=== PATIENT | male | born 1980 | race Caucasian/White ===

== ENCOUNTER 2024-11-02 12:34 | Inpatient (IN) ==
[2024-11-02] MEDS: SODIUM CHLORIDE 1,000 ML IV ONE (13:31)
[2024-11-02] MEDS: TORADOL IVP STA (13:31)
--- NOTE | 2024-11-02 13:38 | DI ---
EXAM: FRONTAL CHEST RADIOGRAPH(S). 1 VIEW. History: Chest pain. Shortness of breath. Comparison: 09/08/2021 Findings: Heart size normal. No pleural effusion or pneumothorax. No focal airspace opacification.Jesse triculoperitoneal shunt. Impression: No acute findings
[2024-11-02 13:44] LABS: BASOPHILS % (AUTO) 0.6 % (0.0-3.0); EOSINOPHILS % (AUTO) 0.3 % (0.0-7.0); HEMATOCRIT 46.7 % (42.0-52.0); HEMOGLOBIN 16.1 g/dl (14.0-18.0); IMMATURE GRANULOCYTE % (AUTO) 0.3 % (0.0-5.0); LYMPHOCYTES # (AUTO) 1.2 K/uL (0.60-3.4); LYMPHOCYTES % (AUTO) 18.5 (10.0-50.0); MEAN CORPUSCULAR HEMOGLOBIN 27.9 pg (27.0-31.0); MEAN CORPUSCULAR HGB CONC 34.5 (31.8-35.4); MEAN CORPUSCULAR VOLUME 80.9 fl (80.0-94.0); MONOCYTES # (AUTO) 0.7 K/uL (0.4-2.0); MONOCYTES % (AUTO) 11.7 (0-10); NEUTROPHILS # (AUTO) 4.3 K/ul (2.0-6.9); NEUTROPHILS % (AUTO) 68.6 % (42.2-75.2); PLATELET COUNT 220 10^3/uL (140-440); RDW COEFFICIENT OF VARIATION 12.7 % (11.6-14.8); RED BLOOD COUNT 5.77 10^6/ul (4.70-6.10); WHITE BLOOD COUNT 6.31 K/ul (4.2-10.2)
[2024-11-02 13:49] LABS: ALANINE AMINOTRANSFERASE 91.5 U/L (0-50); ALBUMIN 4.83 g/dL (3.5-5.0); ALKALINE PHOSPHATASE 42.9 U/L (38-126); ASPARTATE AMINO TRANSFERASE 235.8 U/L (17-59); BILIRUBIN,TOTAL 3.86 mg/dL (0.2-1.3); BLOOD UREA NITROGEN 16.5 mg/dL (9-20); CALCIUM 8.71 mg/dL (8.4-10.2); CARBON DIOXIDE 23.6 mmol/L (22-30.0); CHLORIDE 94.3 mmol/L (98-107); CREATININE 1.88 mg/dL (0.60-1.10); GLUCOSE 88.2 mg/dL (74-106); POTASSIUM 3.76 mmol/L (3.5-5.1); SODIUM 127.6 mmol/L (134.5-145); TOTAL PROTEIN 8.07 g/dL (6.3-8.2)
[2024-11-02 13:51] LABS: RSV MOLECULAR NEGATIVE BY NAAT (NEGATIVE); SARS COV-2 RNA RAPID NAAT NEGATIVE (NEGATIVE)
[2024-11-02 13:52] LABS: MOLECULAR FLU A POSITIVE BY NAAT (NEGATIVE); MOLECULAR FLU B NEGATIVE BY NAAT (NEGATIVE)
[2024-11-02 14:01] LABS: TROPONIN I < 0.012 ng/ml (0.0000-0.120)
[2024-11-02 14:08] LABS: PARTIAL THROMBOPLASTIN TIME 31.4 SEC (23.9-40.0); PROTHROMBIN TIME 12.7 SEC (9.3-11.0)
[2024-11-02 14:14] LABS: CREATINE KINASE 11551.7 U/L (55-170)
--- NOTE | 2024-11-02 15:25 | US ---
EXAM: ULTRASOUND OF THE RIGHT UPPER QUADRANT (LIMITED ABDOMEN) HISTORY: Sepsis. Elevated liver function tests. Elevated bilirubin. TECHNIQUE: Sonography of the right upper quadrant of the abdomen was performed. Color Doppler imagin g and spectral Doppler imaging of the portal vein was also performed. Images were obtained and store d in a permanent archive. COMPARISON: None. FINDINGS: Pancreas: Not visualized due to overlying bowel gas. Liver: Enlarged and diffusely increased echogenicity. Normal surface contour. No focal hepatic lesio n. Main portal vein: Normal hepatopetal flow. Gallbladder: No gallstones in the gallbladder. No gallbladder wall thickening. Negative sonographic M urphy's sign. Common bile duct measures 4.0 mm. Right Kidney: Measures: 11.2 x 4.6 x 5.0 cm. No mass. No calculus. No hydronephrosis. IVC: Patent on color doppler. No abnormality on limited abdalla scale image. Other: No ascites. IMPRESSION: 1. Hepatomegaly. 2. Fatty metamorphosis of the liver. 3. Pancreas not visualized. 4. Otherwise unremarkable right upper quadrant abdomen ultrasound.
[2024-11-02 15:27] LABS: BILIRUBIN,URINE Negative (NEGATIVE); CLARITY,URINE Clear (CLEAR); COLOR,URINE Amber (YELLOW); GLUCOSE, URINE (UA) Negative (NEGATIVE); KETONES,URINE Negative (NEGATIVE); LEUKOCYTE ESTERASE ,URINE Negative (NEGATIVE); NITRITE,URINE Negative (NEGATIVE); PH,URINE 5.5 (5-9); PROTEIN,URINE 3+ (NEGATIVE); URINE, BLOOD 3+ (NEGATIVE); UROBILINOGEN,URINE 0.2 (0.2)
[2024-11-02 15:33] LABS: AMORPHOUS SEDIMENT,UR 2+ (NOT PRESENT); SQUAMOUS EPITHELIAL CELL,UR 0-2 (0-5)
[2024-11-02 15:34] LABS: MUCUS,URINE TRACE (NOT PRESENT)
--- NOTE | 2024-11-02 17:36 | ED.PDOC ---
General ED Provider: Dr. VAL SHANKS DO Chief Complaint: Fall Stated Complaint: 44-year-old male presents to the ER with his sister who states that the patient had fallen and was not able to get up from the floor. The patient has a history of recurrent falls presumably due to his known history of brain cancer. This diagnosis has been present for greater than 10 years. He has a [employer] shunt. He has started to establish care here locally as his care was otherwise in [place] and other [facility]. There is reported fever. He denies headache, neck pain, distal paresthesia or weakness. Denies chest pain or shortness of breath. Denies abdominal pain, diarrhea, constipation, melena, medic easier, dysuria or hematuria. No known sick contacts. History reviewed in chart otherwise Time Seen by Provider: 11/02/24 12:40 Information Source: Patient Primary Care Provider: LEXI OSBORNE Nursing and Triage Documentation Reviewed and Agree: Yes What is Opioid Naive?: *Opioid Naive implies the patient is not already taking opioids or not chronically receiving opioids on a daily basis. *PRN dosing is not "usually" associated with tolerance. *Patients are at higher risk of over-sedation and aspiration. What is Opioid Tolerant?: *Opioid Tolerance implies less than the expected response to an opioid. *Acquired tolerance is defined by the patient taking 60mg of oral morphine daily (or equianalgesic dose of another opioid) for 1 week or more. *Often associated with chronic pain. *May take more than usual dose to achieve desired pain control. Review of Systems Review Of Systems Constitutional: Reports No symptoms All Other Systems: Reviewed and Negative [facility] Medical History (Updated 11/02/24 @ 18:03 by VAL SHANKS DO) History of seizure Z87.898 - Personal history of other specified conditions (ICD-10) Physical Exam Physical Exam Appearance: Reports Ill-appearing, No pain distress and Well-nourished Ill-appearing: Moderate Eyes: Reports WANDA, EOMI and Conjunctiva clear ENT: Reports Oropharynx normal Respiratory: Reports Airway patent, Breath sounds clear, Breath sounds equal and Respirations nonlabored Cardiovascular: Reports Pulses normal and Tachycardia GI/: Reports Soft and Nontender Musculoskeletal: Reports Normal strength and ROM intact Skin: Reports Warm, Dry and Normal color Neurological: Reports Sensation intact, Motor intact, Cranial nerves intact, Alert and Oriented Psychiatric: Reports Affect appropriate and Mood appropriate Interpretation Radiology Interpretation Radiology Interpretation By: Radiologist Radiology Results: No acute changes Exam Interpreted: Portable CXR Radiology Interpretation By: Radiologist Radiology Results: No acute changes Exam Interpreted: Other (Gallbladder ultrasound) Re-Evaluation Re-Evaluation Additional Comments: 44-year-old male presents to the ER febrile and ill- appearing. Concern for sepsis and septic workup immediately initiated. This also included viral swabs. These were subsequently positive for influenza A. It is noted that he had a transaminitis which could be caused from the flu. Gallbladder ultrasound subsequently negative. CLIFF present in addition to significant level of creatinine kinase to suggest rhabdomyolysis which aligns with his clinical history of lying on the floor for an unknown amount of time. He denies headache and presents with baseline mentation. Doubt acute complication of his brain cancer or [employer] shunt. No obvious disruption of the shunt on his chest x-ray. I do not feel a shunt series otherwise is necessary given the lack of symptoms and presenting physical exam. 30 cc/kg fluid bolus given although he does not have a leukocytosis, and his blood pressure is normotensive, this will be integral for his CLIFF and rhabdomyolysis. Exam and workup otherwise not consistent with pneumonia, hepatic, biliary, pancreatic, appendiceal, vascular or obstructive process. Patient treated with antipyretics in the emergency department which improved his fever. Tamiflu also ordered. The patient is not on any immunosuppressive medications. I discussed the case with the hospitalist service preliminarily as the patient has a complicated history with the presence of a [employer] shunt and history of brain cancer but I do not feel these are contributing factors to his presenting symptoms today nor is there acute complications regarding these pathologies. If we are able to demonstrate improvement in his rhabdo and renal function, the hospitalist service has indicated they may be able to admit for treatment here. The patient also has a history of adrenal insufficiency but does not demonstrate any signs or symptoms of that here today in my clinical opinion. Will reassess his laboratory workup after fluid bolus for disposition 1758: Patient is remained stable. Vital signs stable. Labs have improved except for the CK which may have just not peaked yet. His bilirubin has improved as well as his transaminase level and creatinine. I have discussed the case further with the hospitalist service who has graciously accepted for inpatient treatment for rhabdomyolysis, influenza, CLIFF and severe sepsis. Tissue perfusion reassessment conducted with no adverse interval change. Stable for admission Critical Care Note Critical Care Note Total Critical Care Time (mins): 180 Comments: Critically ill patient with rhabdomyolysis, severe sepsis, acute kidney injury that has required constant cardiac monitoring, frequent reassessments, prompt recognition and management and measurement of cardiac output measures as well as fluid bolus and supportive care. Course Course 11/02/24 13:29 11/02/24 17:31 Orders, Labs, Meds: Lab Review 11/02/24 11/02/24 11/02/24 13:22 13:29 15:10 WBC 6.31 RBC 5.77 Hgb 16.1 Hct 46.7 MCV 80.9 MCH 27.9 MCHC 34.5 RDW Coeff of Brooke 12.7 Plt Count 220 Immature Gran % (Auto) 0.3 Neut % (Auto) 68.6 Lymph % (Auto) 18.5 Dyer % (Auto) 11.7 H Eos % (Auto) 0.3 Baso % (Auto) 0.6 Neut # (Auto) 4.3 Lymph # (Auto) 1.2 Dyer # (Auto) 0.7 Eos # (Auto) 0.0 Baso # (Auto) 0.0 Immature Gran # (Auto) 0.0 PT 12.7 H INR 1.23 APTT 31.4 Sodium 127.6 L Potassium 3.76 Chloride 94.3 L Carbon Dioxide 23.6 Anion Gap 13.46 BUN 16.5 Creatinine 1.88 H Estimated GFR (MDRD) 39.00 BUN/Creatinine Ratio 8.77 Glucose 88.2 Lactic Acid 1.01 Calcium 8.71 Total Bilirubin 3.86 H AST 235.8 H ALT 91.5 H Alkaline Phosphatase 42.9 Total Creatine Kinase 62218.7 H CK-MB (CK-2) 30.800 H* CK-MB (CK-2) % 0.2600 Troponin I < 0.012 NT-Pro-B Natriuret Pep 225 Total Protein 8.07 Albumin 4.83 Globulin 3.24 Albumin/Globulin Ratio 1.49 Urine Color Arpita Urine Clarity Clear Urine pH 5.5 Ur Specific [place] >=1.030 Urine Protein 3+ H Urine Glucose (UA) Negative Urine Ketones Negative Urine Blood 3+ H Urine Nitrite Negative Urine Bilirubin Negative Urine Urobilinogen 0.2 Ur Leukocyte Esterase Negative Ur Squamous Epith Cells 0-2 Amorphous Sediment 2+ Fine Granular Casts 2-5 Urine Mucus Trace Influ A Molecular Assay Positive by naat H Influ B Molecular Assay Negative by naat RSV Antigen Negative by naat SARS CoV-2 RNA Rapid GINA Negative 11/02/24 17:31 WBC RBC Hgb Hct MCV MCH MCHC RDW Coeff of Brooke Plt Count Immature Gran % (Auto) Neut % (Auto) Lymph % (Auto) [place] % (Auto) Eos % (Auto) Baso % (Auto) Neut # (Auto) Lymph # (Auto) Dyer # (Auto) Eos # (Auto) Baso # (Auto) Immature Gran # (Auto) PT INR APTT Sodium 128.7 L Potassium 3.51 Chloride 100.8 Carbon Dioxide 20.1 L Anion Gap 11.31 BUN 16.2 Creatinine 1.66 H Estimated GFR (MDRD) 45.00 BUN/Creatinine Ratio 9.75 Glucose 81.3 Lactic Acid Calcium 7.22 L Total Bilirubin 3.06 H AST 216.2 H ALT 77.4 H Alkaline Phosphatase 36.2 L Total Creatine Kinase 71792.3 H CK-MB (CK-2) Pending CK-MB (CK-2) % Pending Troponin I NT-Pro-B Natriuret Pep Total Protein 6.33 Albumin 3.63 Globulin 2.70 Albumin/Globulin Ratio 1.34 Urine Color Urine Clarity Urine pH Ur Specific [place] Urine Protein Urine Glucose (UA) Urine Ketones Urine Blood Urine Nitrite Urine Bilirubin Urine Urobilinogen Ur Leukocyte Esterase Ur Squamous Epith Cells Amorphous Sediment Fine Granular Casts Urine Mucus Influ A Molecular Assay Influ B Molecular Assay RSV Antigen SARS CoV-2 RNA Rapid GINA Orders Category Date Time Status ADMIT PATIENT INPATIENT .TO [facility] (MONITORED BED) ADMISSION 11/02/24 17:58 Active NPO REMINDER: IMAGING ONCE CARE 11/02/24 14:11 Completed TELEMETRY MONITORING TELE CARE 11/02/24 17:58 Active BLOOD CULTURE (ED ONLY) Stat LAB 11/02/24 14:09 Received CBC W/ AUTO DIFF Stat LAB 11/02/24 13:29 Completed CMP [COMPREHENSIVE METABOLIC PANEL] Stat LAB 11/02/24 13:29 Completed CMP [COMPREHENSIVE METABOLIC PANEL] Stat LAB 11/02/24 17:31 Results COVID [SARS COV-2 RNA RAPID GINA] Stat LAB 11/02/24 13:22 Completed CREATINE KINASE Stat LAB 11/02/24 13:29 Completed CREATINE KINASE Stat LAB 11/02/24 17:31 Results ED PROBNP [NT-PROBNP(ED)] Stat LAB 11/02/24 13:29 Completed FLU A & B MOLECULAR [FLU A/B MOLECULAR] Stat LAB 11/02/24 13:22 Completed LACTIC ACID Stat LAB 11/02/24 13:29 Completed PT WITH INR Stat LAB 11/02/24 13:29 Completed PTT [PARTIAL THROMBOPLASTIN TIME] Stat LAB 11/02/24 13:29 Completed RSV Stat LAB 11/02/24 13:22 Completed TROPONIN I Stat LAB 11/02/24 13:29 Completed URINALYSIS C & S IF INDICATED Stat LAB 11/02/24 15:10 Completed Ketorolac Tromethamine [Toradol] Meds 11/02/24 13:08 Discontinued 30 mg IVP ONCE STA Oseltamivir Phosphate Capsule [Tamiflu Capsule] Meds 11/02/24 17:24 Discontinued 75 mg PO ONCE ONE Sodium Chloride 0.9% [Sodium Chloride] 1,000 ml Meds 11/02/24 13:08 Discontinued IV BOLUS CHEST, 1V AP ONLY Stat RADS 11/02/24 13:09 Completed GALLBLADDER ULTRASOUND [U/S ABDOMEN RT UPPER QUAD] Stat RADS 11/02/24 14:11 Completed Medications Discontinued Medications Generic Name Dose Route Start Last Admin Trade Name Freq PRN Reason Stop Dose Admin Sodium Chloride 1,000 mls @ 1,000 mls/hr 11/02/24 13:08 11/02/24 15:45 Sodium Chloride IV 11/02/24 14:07 1,000 mls/hr BOLUS ONE Administration Ketorolac Tromethamine 30 mg 11/02/24 13:08 11/02/24 13:31 Ketorolac Tromethamine 30 Mg/Ml Vial IVP 11/02/24 13:09 30 mg ONCE STA Administration Oseltamivir Phosphate 75 mg 11/02/24 17:24 11/02/24 17:44 Oseltamivir Phosphate 75 Mg Capsule PO 11/02/24 17:25 75 mg ONCE ONE Administration Vital Signs: Temp Pulse Resp BP Pulse Ox 11/02/24 12:59 102.1 F H 129 H 20 138/89 94 L Discharge Plan Discharge Patient Disposition: ADMITTED INPATIENT Discharge Problem: Severe sepsis, Influenza A, Rhabdomyolysis, CLIFF (acute kidney injury) Prescriptions: No Action loperamide [Imodium A-D] 2 mg capsule 2 mg PO Q6H MDD 3 PRN (Reason: loose stool) Qty: 12 0RF Rx Instructions: Take the Imodium only if persistent diarrhea hydrocortisone 5 mg tablet 5 mg PO 1500 Patient Comments: TAKE 2 TABLET BY MOUTH EVERY MORNING AND 1 TABLET EVERY EVENING hydrocortisone 5 mg tablet 10 mg PO DAILY Patient Comments: TAKE 2 TABLET BY MOUTH EVERY MORNING AND 1 TABLET EVERY EVENING levothyroxine 150 mcg tablet 150 mcg PO DAILY Patient Comments: TAKE 1 TABLET BY MOUTH EVERY DAY testosterone 100 mg/mL Suspension 100 mg IM WEEKLY fluticasone propionate [Flonase] 50 mcg/actuation [place],Suspension 1 spray INTRANASAL BID Rx Instructions: administer into each nostril escitalopram oxalate [Lexapro] 5 mg Tablet 5 mg PO DAILY levetiracetam [Keppra] 1,000 mg Tablet 1,000 mg PO BID Did you review [place]AT[place] for ALL controlled substances?: Not Applicable ED Provider: VAL SHANKS
[2024-11-02] MEDS: TAMIFLU CAPSULE PO ONE (17:44)
[2024-11-02 17:49] LABS: ALANINE AMINOTRANSFERASE 77.4 U/L (0-50); ALBUMIN 3.63 g/dL (3.5-5.0); ALKALINE PHOSPHATASE 36.2 U/L (38-126); ASPARTATE AMINO TRANSFERASE 216.2 U/L (17-59); BILIRUBIN,TOTAL 3.06 mg/dL (0.2-1.3); BLOOD UREA NITROGEN 16.2 mg/dL (9-20); CALCIUM 7.22 mg/dL (8.4-10.2); CARBON DIOXIDE 20.1 mmol/L (22-30.0); CHLORIDE 100.8 mmol/L (98-107); CREATININE 1.66 mg/dL (0.60-1.10); GLUCOSE 81.3 mg/dL (74-106); POTASSIUM 3.51 mmol/L (3.5-5.1); SODIUM 128.7 mmol/L (134.5-145); TOTAL PROTEIN 6.33 g/dL (6.3-8.2)
[2024-11-02 17:51] LABS: CREATINE KINASE 14180.3 U/L (55-170)
[2024-11-02 18:08] LABS: CREATINE KINASE MB 33.5 ng/ml (0.0-2.38)
[2024-11-02] MEDS ORDERED: ZOFRAN SDV IVP PRN (19:05)
[2024-11-02] MEDS ORDERED: TYLENOL PO PRN (19:05)
[2024-11-02] MEDS: SOLU-CORTEF 100 MG IVP SCH (21:59)
[2024-11-02] MEDS: FLONASE NAS SCH (22:03)
[2024-11-02] MEDS: KEPPRA PO SCH (22:03)
[2024-11-02] MEDS: SODIUM CHLORIDE 1,000 ML IV SCH (22:04)
[2024-11-02 22:25] VITALS: BMI 36.1
[2024-11-03] MEDS: SOLU-CORTEF 100 MG IVP SCH (04:22)
[2024-11-03] MEDS: SYNTHROID PO SCH (05:23)
[2024-11-03 05:56] LABS: HEMATOCRIT 43.1 % (42.0-52.0); HEMOGLOBIN 14.5 g/dl (14.0-18.0); MEAN CORPUSCULAR HEMOGLOBIN 27.3 pg (27.0-31.0); MEAN CORPUSCULAR HGB CONC 33.6 (31.8-35.4); PLATELET COUNT 172 10^3/uL (140-440); RED BLOOD COUNT 5.32 10^6/ul (4.70-6.10); WHITE BLOOD COUNT 3.26 K/ul (4.2-10.2)
[2024-11-03 06:09] LABS: ALBUMIN 4.16 g/dL (3.5-5.0); ALKALINE PHOSPHATASE 37.8 U/L (38-126); ASPARTATE AMINO TRANSFERASE 303.4 U/L (17-59); BILIRUBIN,TOTAL 2.38 mg/dL (0.2-1.3); BLOOD UREA NITROGEN 14.9 mg/dL (9-20); CALCIUM 7.91 mg/dL (8.4-10.2); CARBON DIOXIDE 21.1 mmol/L (22-30.0); CHLORIDE 101.7 mmol/L (98-107); CREATININE 1.51 mg/dL (0.60-1.10); GLUCOSE 102.7 mg/dL (74-106); POTASSIUM 4.26 mmol/L (3.5-5.1); SODIUM 130.5 mmol/L (134.5-145); TOTAL PROTEIN 7.12 g/dL (6.3-8.2)
[2024-11-03 06:39] LABS: CREATINE KINASE 22276.8 U/L (55-170)
[2024-11-03 06:57] LABS: CREATINE KINASE MB 31.1 ng/ml (0.0-2.38)
[2024-11-03] MEDS: LEXAPRO PO SCH (08:54)
[2024-11-03] MEDS: TAMIFLU CAPSULE PO SCH (08:54)
[2024-11-03] MEDS: SODIUM CHLORIDE 1,000 ML IV SCH (09:09)
[2024-11-03] MEDS ORDERED: IMODIUM PO PRN (09:20)
--- NOTE | 2024-11-03 15:32 | PCM ---
Date of Service Date Seen by Provider: 11/03/24 Time Seen by Provider: 09:10 Admit Day/Time Admission Date: 11/02/24 Admission Time: 17:58 Reason for Admission Chief Complaint: RHABDOMYOLYSIS, CLIFF, FLU A Hospital Provider Hospital Provider: AFUA CARMEN PA-C, [facility] Primary Care Physician Primary Care Physician: LEXI OSBORNE History of Present Illness History of Present Illness: Patient is a 44 year old male with pmhx of astrocytoma grade 2 s/p chemo/radiation in 2014 (pt and father state it was non cancerous), obstructive hydrocephalus s/p shunt placement, hx of cva, adrenal insufficiency on chronic steroids, seizures, hypothyroidism, who presents for fall, fatigue, and diarrhea. Dad states the diarrhea has been on going for some time. However patient had a fall at home and was down for an unknown amount of time. Pt has difficulty recalling specifics of the events but remembers trying to crawl to the door to let family in. In the ER he was positive for influenza A. Noted to have a fever and tachycardic. His BP was normal. [place] was [place] [address]. Liver enzymes were mildly elevated. RUQ ultrasound was negative fro acute findings. CXR negative as well. Patient was given fluids and tamiflu and admitted to med surg for influenza and rhabdo. Today patient is feeling much better. Father states he seems much better as well. He has urinated well with fluid resuscitation. Patient states he recently had his routine MRI brain done at [facility] but follows at [place]. He also sees a Dr. Escalante for endocrinology/adrenal insufficiency. Case Discussed With Case Discussed With: Patient's case was discussed with the ER Physicians, Dr. Olguin. 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 Gets scans in [place] that are sent to [facility]. Z98.890 - Other specified postprocedural states (ICD-10) Family History Mother Cancer PATERNAL GRANDFATHER Cancer Social History Smoking and tobacco status: Never smoker Passive smoking exposure: No Alcohol intake: never Substance use type: does not use Alise/restorationist: UNKNOWN Caregiver/support person: Yes (Father and sister) Household members: none Housing: house Marital status: 1 year Lives independently: Yes Allergies Allergies Allergy/AdvReac Type Severity Reaction Status Date / Time No Known Allergies Allergy Verified 11/02/24 13:05 Current Medications Home Medications Acetaminophen (Acetaminophen 325 Mg Tablet) 650 mg PO Q4H PRN PRN Reason: Mild Pain Escitalopram Oxalate (Escitalopram Oxalate 10 Mg Tablet) 5 mg PO DAILY [facility] Last Admin: 11/03/24 08:54 Dose: 5 mg Fluticasone Propionate (Fluticasone Propionate 16 Gm Nasal Erhard) 1 spray CHANNING BID [facility] Last Admin: 11/03/24 08:54 Dose: 1 spray Hydrocortisone Sodium Succinate (Hydrocortisone Sod Succ/Pf 100 Mg/2 Ml Vial) 50 mg IVP Q6H [facility] Last Admin: 11/03/24 10:35 Dose: 50 mg Sodium Chloride (Sodium Chloride) 1,000 mls @ 400 mls/hr IV .Q2H30M [facility] Last Admin: 11/03/24 13:18 Dose: 400 mls/hr Levetiracetam (Levetiracetam 500 Mg Tablet) 1,000 mg PO BID [facility] Last Admin: 11/03/24 08:54 Dose: 1,000 mg Levothyroxine Sodium (Levothyroxine Sodium 100 Mcg Tablet) 150 mcg PO QDAC2 [facility] Last Admin: 11/03/24 05:23 Dose: 150 mcg Loperamide HCl (Loperamide Hcl 2 Mg Tablet) 2 mg PO Q6H PRN PRN Reason: Diarrhea Ondansetron HCl (Ondansetron Hcl/Pf 4 Mg/2 Ml Sdv) 4 mg IVP Q6H PRN PRN Reason: Nausea / Vomiting Oseltamivir Phosphate (Oseltamivir Phosphate 75 Mg Capsule) 75 mg PO Q12HR [facility] Stop: 11/07/24 09:01 Last Admin: 11/03/24 08:54 Dose: 75 mg Sodium Chloride (0.9% Sodium Chloride 10 Ml Disp.Syrin) 1 syr IVF Q8HR [facility] Last Admin: 11/03/24 04:44 Dose: 1 syr escitalopram oxalate 5 mg tablet (Lexapro) 5 mg PO DAILY 09/08/21 [History Confirmed 11/02/24] fluticasone propionate 50 mcg/actuation nasal spray,suspension 1 spray intranasal BID 09/08/21 [History Confirmed 11/02/24] hydrocortisone 5 mg tablet 5 mg PO 1500 09/08/21 [History Confirmed 11/02/24] hydrocortisone 5 mg tablet 10 mg PO DAILY 09/08/21 [History Confirmed 11/02/24] levetiracetam 1,000 mg tablet (Keppra) 1,000 mg PO BID 09/08/21 [History Confirmed 11/02/24] levothyroxine 150 mcg tablet 150 mcg PO DAILY 09/08/21 [History Confirmed 11/02/24] testosterone 100 mg/mL intramuscular suspension 100 mg IM WEEKLY 09/08/21 [History Confirmed 11/02/24] loperamide 2 mg capsule (Imodium A-D) 2 mg PO Q6H PRN loose stool #12 caps 09/13 02/02 [Rx Confirmed 11/02/24] Opioid Naive vs. Tolerant Does Patient Take Opioids?: No Is Patient Opioid Naive?: Yes What is Opioid Naive?: *Opioid Naive implies the patient is not already taking opioids or not chronically receiving opioids on a daily basis. *PRN dosing is not "usually" associated with tolerance. *Patients are at higher risk of over-sedation and aspiration. Is Patient Opioid Tolerant?: No What is Opioid Tolerant?: *Opioid Tolerance implies less than the expected response to an opioid. *Acquired tolerance is defined by the patient taking 60mg of oral morphine daily (or equianalgesic dose of another opioid) for 1 week or more. *Often associated with chronic pain. *May take more than usual dose to achieve desired pain control. Review of Systems Constitutional: Reports Fever, Fatigue and Weakness Head: Reports Normocephalic and Atraumatic Cardiovascular: Denies Chest pain, Chest Pressure or Edema Respiratory: Denies Cough or Shortness of air Gastrointestinal: Reports Diarrhea; Denies Nausea, Vomiting, Abdominal pain or Melena Genitourinary: Denies Dysuria or Hematuria Dermatologic: Denies Rashes Neurological: Reports Other (+ fall, unknown details ); Denies Headache Physical examination Most Recent Vital Signs: Most Recent Vital Signs Temperature 99 F 11/03/24 05:09 Temperature Source Temporal Artery Scan 11/03/24 05:09 Temperature Source Tympanic 11/02/24 12:59 Pulse Rate 109 H 11/03/24 05:09 Respiratory Rate 25 H 11/03/24 05:09 Blood Pressure 179/96 H 11/03/24 05:09 Blood Pressure Mean 123 11/03/24 05:09 Blood Pressure Left Arm 146/99 11/02/24 20:28 Blood Pressure Location Left Arm 11/03/24 05:09 Blood Pressure Position Supine 11/03/24 05:09 O2 Sat by Pulse Oximetry 96 11/03/24 05:09 Oxygen Delivery Method Room Air 11/03/24 05:09 Height 6 ft 11/02/24 20:28 Weight 120.8 kg 11/02/24 20:28 Telemetry Type Bedside Monitor 11/03/24 07:00 Telemetry Monitoring Continues 11/03/24 07:00 Telemetry Heart Rate 110 H 11/03/24 07:00 Telemetry SPO2 97 11/02/24 20:38 EKG TX Interval 0.19 11/03/24 07:00 EKG QRS Interval 0.06 11/03/24 07:[address] 11/03/24 07:00 Appearance: Positive No Apparent Distress and Alert and Oriented x3 Skin: Positive [place] and Good Turgor; Negative Rashes HEENT: Positive Normocephalic and Atraumatic Neck: Positive Supple and Midline Trachea Chest/Lungs: Positive Clear to Auscultation Bilaterally; Negative Rales, Rhonci or Wheezes Heart: Positive RRR GI/: Positive Soft, Nontender, Bowel Sounds Normal and No Distention Neurological: Positive Cranial Nerves Intact, Alert, Oriented and Muscle Strength 5/5 in Upper and Lower Extremities Bilaterally Psychiatric: Positive Oriented x4, Appropriate Mood and Appropriate Affect Labs This Visit Labs This Visit: Labs This Visit 11/02/24 11/02/24 11/02/24 13:22 13:29 15:10 WBC 6.31 RBC 5.77 Hgb 16.1 Hct 46.7 MCV 80.9 MCH 27.9 MCHC 34.5 RDW Coeff of Brooke 12.7 Plt Count 220 Immature Gran % (Auto) 0.3 Neut % (Auto) 68.6 Lymph % (Auto) 18.5 [place] % (Auto) 11.7 H Eos % (Auto) 0.3 Baso % (Auto) 0.6 Neut # (Auto) 4.3 Lymph # (Auto) 1.2 [place] # (Auto) 0.7 Eos # (Auto) 0.0 Baso # (Auto) 0.0 Immature Gran # (Auto) 0.0 Neutrophils % (Manual) Band Neutrophils % Lymphocytes % (Manual) Monocytes % (Manual) Eosinophils % (Manual) Reactive Lymphocytes Anisocytosis PT 12.7 H INR 1.23 APTT 31.4 Sodium 127.6 L Potassium 3.76 Chloride 94.3 L Carbon Dioxide 23.6 Anion Gap 13.46 BUN 16.5 Creatinine 1.88 H Estimated GFR (MDRD) 39.00 BUN/Creatinine Ratio 8.77 Glucose 88.2 Lactic Acid 1.01 Calcium 8.71 Total Bilirubin 3.86 H AST 235.8 H ALT 91.5 H Alkaline Phosphatase 42.9 Total Creatine Kinase 09259.7 H CK-MB (CK-2) 30.800 H* CK-MB (CK-2) % 0.2600 Troponin I < 0.012 NT-Pro-B Natriuret Pep 225 Total Protein 8.07 Albumin 4.83 Globulin 3.24 Albumin/Globulin Ratio 1.49 Urine Color Arpita Urine Clarity Clear Urine pH 5.5 Ur Specific [place] >=1.030 Urine Protein 3+ H Urine Glucose (UA) Negative Urine Ketones Negative Urine Blood 3+ H Urine Nitrite Negative Urine Bilirubin Negative Urine Urobilinogen 0.2 Ur Leukocyte Esterase Negative Ur Squamous Epith Cells 0-2 Amorphous Sediment 2+ Fine Granular Casts 2-5 Urine Mucus Trace Influ A Molecular Assay Positive by naat H Influ B Molecular Assay Negative by naat RSV Antigen Negative by naat SARS CoV-2 RNA Rapid GINA Negative 11/02/24 11/03/24 17:31 05:52 WBC 3.26 L RBC 5.32 Hgb 14.5 Hct 43.1 MCV 81.0 MCH 27.3 MCHC 33.6 RDW Coeff of Brooke 13.0 Plt Count 172 Immature Gran % (Auto) Neut % (Auto) Lymph % (Auto) [place] % (Auto) Eos % (Auto) Baso % (Auto) Neut # (Auto) Lymph # (Auto) [place] # (Auto) Eos # (Auto) Baso # (Auto) Immature Gran # (Auto) Neutrophils % (Manual) 69.0 Band Neutrophils % 6.0 H Lymphocytes % (Manual) 14.0 Monocytes % (Manual) 5.0 Eosinophils % (Manual) 1.0 Reactive Lymphocytes 5.0 Anisocytosis Not Reportable PT INR APTT Sodium 128.7 L 130.5 L Potassium 3.51 4.26 Chloride 100.8 101.7 Carbon Dioxide 20.1 L 21.1 L Anion Gap 11.31 11.96 BUN 16.2 14.9 Creatinine 1.66 H 1.51 H Estimated GFR (MDRD) 45.00 50.00 BUN/Creatinine Ratio 9.75 9.86 Glucose 81.3 102.7 Lactic Acid Calcium 7.22 L 7.91 L Total Bilirubin 3.06 H 2.38 H AST 216.2 H 303.4 H D ALT 77.4 H 91.0 H Alkaline Phosphatase 36.2 L 37.8 L Total Creatine Kinase 85668.3 H 45180.8 H CK-MB (CK-2) 33.500 H* 31.100 H* CK-MB (CK-2) % 0.2300 0.1300 Troponin I NT-Pro-B Natriuret Pep Total Protein 6.33 7.12 Albumin 3.63 4.16 Globulin 2.70 2.96 Albumin/Globulin Ratio 1.34 1.40 Urine Color Urine Clarity Urine pH Ur Specific [place] Urine Protein Urine Glucose (UA) Urine Ketones Urine Blood Urine Nitrite Urine Bilirubin Urine Urobilinogen Ur Leukocyte Esterase Ur Squamous Epith Cells Amorphous Sediment Fine Granular Casts Urine Mucus Influ A Molecular Assay Influ B Molecular Assay RSV Antigen SARS CoV-2 RNA Rapid GINA Microbiology This Visit 11/02/24 14:09 Blood Blood Culture - Preliminary NEGATIVE AFTER 1 DAY. 11/02/24 13:29 Blood Blood Culture - Preliminary NEGATIVE AFTER 1 DAY. Imaging Imaging: EXAM: FRONTAL CHEST RADIOGRAPH(S). 1 VIEW. History: Chest pain. Shortness of breath. Comparison: 09/08/2021 Findings: Heart size normal. No pleural effusion or pneumothorax. No focal airspace opacification.Ventriculoperitoneal shunt. Impression: No acute findings EXAM: ULTRASOUND OF THE RIGHT UPPER QUADRANT (LIMITED ABDOMEN) HISTORY: Sepsis. Elevated liver function tests. Elevated bilirubin. TECHNIQUE: Sonography of the right upper quadrant of the abdomen was performed. Color Doppler imaging and spectral Doppler imaging of the portal vein was also performed. Images were obtained and stored in a permanent archive. COMPARISON: None. FINDINGS: Pancreas: Not visualized due to overlying bowel gas. Liver: Enlarged and diffusely increased echogenicity. Normal surface contour. No focal hepatic lesion. Main portal vein: Normal hepatopetal flow. Gallbladder: No gallstones in the gallbladder. No gallbladder wall thickening. Negative sonographic Marlow's sign. Common bile duct measures 4.0 mm. Right Kidney: Measures: 11.2 x 4.6 x 5.0 cm. No mass. No calculus. No hydronephrosis. IVC: Patent on color doppler. No abnormality on limited abdalla scale image. Other: No ascites. IMPRESSION: 1. Hepatomegaly. 2. Fatty metamorphosis of the liver. 3. Pancreas not visualized. 4. Otherwise unremarkable right upper quadrant abdomen ultrasound. Review Statement Review Statement: I have independently reviewed and interpreted the labs/EKGs/imaging that were ordered by the ER provider. I have reviewed all outside records that are available currently in our EMR including imaging/notes/labs from previous visits. Plan Plan: 1. Acute rhabdo in setting of fall and influenza - CPK worsened today to 22K. Fluids increased. Will repeat CPK and bmp this afternoon. Monitor for fluid overload. 2. Influenza A - Tamiflu, isolation, conservative measures 3. Hyponatremia, acute - Improved today, continue fluids 4. Acute transaminitis in setting of viral illness - Improved, US negative, cont fluids 5. Adrenal insufficiency on chronic steroids - Hold home steroids, will stress dose steroids with hydrocortisone 50 q6hrs, will reassess need and start taper tomorrow potentially. Follows with Dr. Oliver, endocrinology at [place]. ([phone]). 6. Hx of astrocytoma grade 2 s/p chemo/radiation in 2015 and obstructive hydrocephalus s/p shunt placement - Had recent routine MRI, follows with [facility]. States he's been doing well from this standpoint lately. Denies chronic deficits except vision changes. 7. Hypothyroidism - Cont home meds DVT Prophylaxis: Ambulation Time Spent: Greater than 80 minutes spent with patient, 50% of the time spent with this patient was devoted to counseling and coordination of care. [facility] Plannin minutes spent discussing advance care planning. Admit to: Inpatient Discussed Plan of Care with Dr. Bo Bland. Medications Medication Orders: Medications Ordered Category Date Time Status 0.9 % Sodium Chloride [Saline Flush] Meds 11/02/24 22:00 Active 1 syr IVF Q8HR Acetaminophen [Tylenol] Meds 11/02/24 19:05 Active 650 mg PO Q4H PRN Escitalopram Oxalate [Lexapro] Meds 11/03/24 09:00 Active 5 mg PO DAILY Fluticasone Propionate [Flonase] Meds 11/02/24 21:00 Active 1 spray CHANNING BID Hydrocortisone Sod Succ/Pf [Solu-Cortef 100 mg] Meds 11/03/24 04:00 Active 50 mg IVP Q6H Levetiracetam [Keppra] Meds 11/02/24 21:00 Active 1,000 mg PO BID Levothyroxine Sodium [Synthroid] Meds 11/03/24 06:00 Active 150 mcg PO QDAC2 Loperamide HCl [Imodium] Meds 11/03/24 09:20 Active 2 mg PO Q6H PRN Ondansetron HCl/Pf [Zofran Sdv] Meds 11/02/24 19:05 Active 4 mg IVP Q6H PRN Oseltamivir Phosphate Capsule [Tamiflu Capsule] Meds 11/03/24 09:00 Active 75 mg PO Q12HR Sodium Chloride 0.9% [Sodium Chloride] 1,000 ml Meds 11/03/24 08:45 Active IV 400 mls/hr
[2024-11-03 15:49] LABS: BLOOD UREA NITROGEN 14.8 mg/dL (9-20); CALCIUM 7.88 mg/dL (8.4-10.2); CARBON DIOXIDE 23.8 mmol/L (22-30.0); CHLORIDE 104.2 mmol/L (98-107); CREATININE 1.35 mg/dL (0.60-1.10); GLUCOSE 143.3 mg/dL (74-106); POTASSIUM 4.26 mmol/L (3.5-5.1); SODIUM 135.4 mmol/L (134.5-145)
[2024-11-03 16:09] LABS: CREATINE KINASE 21080.9 U/L (55-170)
[2024-11-03] MEDS: LACTATED RINGERS 1,000 ML IV SCH (16:27)
[2024-11-03] MEDS: HYDRALAZINE HCL IVP PRN (21:03)
[2024-11-03] MEDS: BENADRYL PO PRN (21:03)
[2024-11-04] MEDS: LACTATED RINGERS 1,000 ML IV SCH (02:04)
[2024-11-04 05:26] LABS: BASOPHILS % (AUTO) 0.2 % (0.0-3.0); EOSINOPHILS % (AUTO) 0.4 % (0.0-7.0); HEMATOCRIT 39.6 % (42.0-52.0); HEMOGLOBIN 13.3 g/dl (14.0-18.0); IMMATURE GRANULOCYTE % (AUTO) 0.4 % (0.0-5.0); LYMPHOCYTES # (AUTO) 0.8 K/uL (0.60-3.4); LYMPHOCYTES % (AUTO) 13.7 (10.0-50.0); MEAN CORPUSCULAR HEMOGLOBIN 27.1 pg (27.0-31.0); MEAN CORPUSCULAR HGB CONC 33.6 (31.8-35.4); MEAN CORPUSCULAR VOLUME 80.8 fl (80.0-94.0); MONOCYTES # (AUTO) 0.4 K/uL (0.4-2.0); MONOCYTES % (AUTO) 7.5 (0-10); NEUTROPHILS # (AUTO) 4.4 K/ul (2.0-6.9); NEUTROPHILS % (AUTO) 77.8 % (42.2-75.2); PLATELET COUNT 208 10^3/uL (140-440); RDW COEFFICIENT OF VARIATION 13.4 % (11.6-14.8); WHITE BLOOD COUNT 5.61 K/ul (4.2-10.2)
[2024-11-04 05:41] LABS: ALANINE AMINOTRANSFERASE 81.1 U/L (0-50); ALBUMIN 3.87 g/dL (3.5-5.0); ALKALINE PHOSPHATASE 37.7 U/L (38-126); ASPARTATE AMINO TRANSFERASE 277.4 U/L (17-59); BILIRUBIN,TOTAL 1.15 mg/dL (0.2-1.3); BLOOD UREA NITROGEN 13.8 mg/dL (9-20); CALCIUM 8.45 mg/dL (8.4-10.2); CHLORIDE 105.4 mmol/L (98-107); CREATININE 1.2 mg/dL (0.60-1.10); GLUCOSE 132.8 mg/dL (74-106); POTASSIUM 3.81 mmol/L (3.5-5.1); SODIUM 136.2 mmol/L (134.5-145); TOTAL PROTEIN 6.66 g/dL (6.3-8.2)
[2024-11-04 06:01] LABS: CREATINE KINASE 18989.1 U/L (55-170)
[2024-11-04 06:35] LABS: CREATINE KINASE MB 15.5 ng/ml (0.0-2.38)
[2024-11-04] MEDS: PEPTO-BISMOL CHEW PO PRN (10:00)
--- NOTE | 2024-11-04 12:57 | PCM.PROG ---
Date/Time Seen Date Seen by Provider: 11/04/24 Time Seen by Provider: 08:50 Provider Provider: AFUA CARMEN [facility]-C, [facility] Chief Complaint Chief Complaint: RHABDOMYOLYSIS, CLIFF, FLU A Subjective Subjective: Patient feeling better. No complaints. Sister who is a PT at bedside. CPK trending down. Objective Appearance: Positive No Apparent Distress and Alert and Oriented x3 Chest/Lungs: Positive Clear to Auscultation Bilaterally; Negative Rales, Rhonci or Wheezes Heart: Positive RRR GI/: Positive Soft, Nontender, Bowel Sounds Normal and No Distention Neurological: Positive Cranial Nerves Intact, Alert, Oriented, Muscle Strength 5/5 in Upper and Lower Extremities Bilaterally and Other Vital Signs Vital Signs: Vital Signs: Last 24 Hours 11/03/24 13:00 11/03/24 14:00 11/03/24 19:00 Temperature 98.4 F Temperature Source Temporal Artery Scan Pulse Rate 104 H Respiratory Rate 17 Blood Pressure 166/90 H Blood Pressure Mean 115 Blood Pressure Location Left Arm Blood Pressure Position O2 Sat by Pulse Oximetry 96 Oxygen Delivery Method Room Air Height Weight Telemetry Type Bedside Monitor Bedside Monitor Telemetry Monitoring Continues Continues Telemetry Heart Rate 111 H 95 Telemetry SPO2 EKG MO Interval 0.15 0.19 EKG QRS Interval 0.06 0.11 H Telemetry Strip Reading ST SR 11/03/24 20:00 11/03/24 20:56 11/03/24 21:10 Temperature 98.4 F Temperature Source Temporal Artery Scan Pulse Rate 91 Respiratory Rate 21 H Blood Pressure 205/129 H 212/99 H Blood Pressure Mean 154 136 Blood Pressure Location Right Arm Right Arm Blood Pressure Position Supine Supine O2 Sat by Pulse Oximetry 97 Oxygen Delivery Method Room Air Room Air Room Air Height Weight Telemetry Type Telemetry Monitoring Telemetry Heart Rate Telemetry SPO2 EKG MO Interval EKG QRS Interval Telemetry Strip Reading 11/03/24 22:10 11/03/24 23:09 11/04/24 00:40 Temperature Temperature Source Pulse Rate Respiratory Rate Blood Pressure 212/102 H 202/107 H 178/103 H Blood Pressure Mean 138 138 128 Blood Pressure Location Right Arm Right Arm Right Arm Blood Pressure Position Sitting Supine Supine O2 Sat by Pulse Oximetry Oxygen Delivery Method Room Air Room Air Room Air Height Weight Telemetry Type Telemetry Monitoring Telemetry Heart Rate Telemetry SPO2 EKG MO Interval EKG QRS Interval Telemetry Strip Reading 11/04/24 01:00 11/04/24 01:00 11/04/24 02:03 Temperature 97.6 F Temperature Source Temporal Artery Scan Pulse Rate 83 Respiratory Rate 16 Blood Pressure 166/83 H 150/71 H Blood Pressure Mean 110 97 Blood Pressure Location Right Arm Right Arm Blood Pressure Position Supine Supine O2 Sat by Pulse Oximetry 97 Oxygen Delivery Method Room Air Room Air Height Weight Telemetry Type Bedside Monitor Telemetry Monitoring Continues Telemetry Heart Rate 94 Telemetry SPO2 96 EKG MO Interval 0.18 EKG QRS Interval 0.08 Telemetry Strip Reading SINUS RHYTHM 11/04/24 04:00 11/04/24 04:47 11/04/24 05:26 Temperature 97.9 F 97.3 F L Temperature Source Temporal Artery Scan Oral Pulse Rate 80 92 93 Respiratory Rate 19 19 19 Blood Pressure 172/118 H 212/142 H 128/93 H Blood Pressure Mean 136 165 104 Blood Pressure Location Left Arm Right Arm Right Arm Blood Pressure Position Supine Supine Supine O2 Sat by Pulse Oximetry 97 98 97 Oxygen Delivery Method Room Air Room Air Room Air Height Weight Telemetry Type Telemetry Monitoring Telemetry Heart Rate Telemetry SPO2 EKG MO Interval EKG QRS Interval Telemetry Strip Reading 11/04/24 07:00 11/04/24 08:00 11/04/24 08:00 Temperature 97.8 F Temperature Source Oral Pulse Rate 94 Respiratory Rate 16 Blood Pressure 132/96 H Blood Pressure Mean 108 Blood Pressure Location Right Arm Blood Pressure Position Sitting O2 Sat by Pulse Oximetry 99 Oxygen Delivery Method Room Air Room Air Height Weight Telemetry Type Bedside Monitor Telemetry Monitoring Continues Telemetry Heart Rate 84 Telemetry SPO2 EKG MO Interval 0.15 EKG QRS Interval 0.09 Telemetry Strip Reading SR 11/04/24 09:43 11/04/24 10:00 Temperature 97.8 F Temperature Source Temporal Artery Scan Pulse Rate 86 Respiratory Rate 14 Blood Pressure 162/105 H Blood Pressure Mean 124 Blood Pressure Location Left Arm Blood Pressure Position O2 Sat by Pulse Oximetry 98 Oxygen Delivery Method Room Air Height 6 ft Weight 120.8 kg Telemetry Type Telemetry Monitoring Telemetry Heart Rate Telemetry SPO2 EKG MO Interval EKG QRS Interval Telemetry Strip Reading Lab Results Lab Results: Lab Results: Last 24 Hours 11/04/24 11/03/24 05:20 15:34 WBC 5.61 RBC 4.90 Hgb 13.3 L Hct 39.6 L MCV 80.8 MCH 27.1 MCHC 33.6 RDW Coeff of Brooke 13.4 Plt Count 208 Immature Gran % (Auto) 0.4 Neut % (Auto) 77.8 H Lymph % (Auto) 13.7 [place] % (Auto) 7.5 Eos % (Auto) 0.4 Baso % (Auto) 0.2 Neut # (Auto) 4.4 Lymph # (Auto) 0.8 [place] # (Auto) 0.4 Eos # (Auto) 0.0 Baso # (Auto) 0.0 Immature Gran # (Auto) 0.0 Sodium 136.2 135.4 Potassium 3.81 4.26 Chloride 105.4 104.2 Carbon Dioxide 24.0 23.8 Anion Gap 10.61 11.66 BUN 13.8 14.8 Creatinine 1.20 H 1.35 H Estimated GFR (MDRD) 66.00 57.00 BUN/Creatinine Ratio 11.50 10.96 Glucose 132.8 H 143.3 H Calcium 8.45 7.88 L Total Bilirubin 1.15 AST 277.4 H D ALT 81.1 H Alkaline Phosphatase 37.7 L Total Creatine Kinase 40322.1 H 72079.9 H CK-MB (CK-2) 15.500 H* 21.000 H* CK-MB (CK-2) % 0.0800 0.0900 Total Protein 6.66 Albumin 3.87 Globulin 2.79 Albumin/Globulin Ratio 1.38 Additional Comments Additional Comments: I have independently reviewed and interpreted the labs/EKGs/imaging ordered during this hospital stay. I have reviewed outside records that are available in our EMR that pertain to medical stay including imaging/notes/labs from previous visits. Active Medications Active Medications: Medications Generic Name Dose Route Start Last Admin Trade Name Freq PRN Reason Stop Dose Admin Acetaminophen 650 mg 11/02/24 19:05 Acetaminophen 325 Mg Tablet PO Q4H PRN Mild Pain Bismuth Subsalicylate 524 mg 11/04/24 09:39 11/04/24 10:00 Bismuth Subsalicylate 262 Mg Tab.Chew PO 524 mg Q6H PRN Administration Diarrhea Diphenhydramine HCl 25 mg 11/03/24 19:36 11/03/24 21:03 Diphenhydramine Hcl 25 Mg Capsule PO 25 mg BEDTIME PRN Administration insomnia Escitalopram Oxalate 5 mg 11/03/24 09:00 11/04/24 08:26 Escitalopram Oxalate 10 Mg Tablet PO 5 mg DAILY EMY Administration Fluticasone Propionate 1 spray 11/02/24 21:00 11/04/24 08:32 Fluticasone Propionate 16 Gm Nasal [place] CHANNING 1 spray BID EMY Administration Hydralazine HCl 10 mg 11/03/24 19:37 11/04/24 04:09 Hydralazine Hcl 20 Mg/Ml Sdv IVP 10 mg Q6H PRN Administration Hypertension Hydrocortisone Sodium Succinate 50 mg 11/03/24 04:00 11/04/24 09:59 Hydrocortisone Sod Succ/Pf 100 Mg/2 Ml Vial IVP 50 mg Q6H EMY Administration Lactated Ringer's 1,000 mls @ 200 mls/hr 11/04/24 01:57 11/04/24 08:19 Lactated Ringers IV 200 mls/hr .Q5H EMY Administration Levetiracetam 1,000 mg 11/02/24 21:00 11/04/24 08:26 Levetiracetam 500 Mg Tablet PO 1,000 mg BID EMY Administration Levothyroxine Sodium 150 mcg 11/03/24 06:00 11/04/24 05:24 Levothyroxine Sodium 100 Mcg Tablet PO 150 mcg QDAC2 EMY Administration Loperamide HCl 2 mg 11/03/24 09:20 Loperamide Hcl 2 Mg Tablet PO Q6H PRN Diarrhea Ondansetron HCl 4 mg 11/02/24 19:05 Ondansetron Hcl/Pf 4 Mg/2 Ml Sdv IVP Q6H PRN Nausea / Vomiting Oseltamivir Phosphate 75 mg 11/03/24 09:00 11/04/24 08:26 Oseltamivir Phosphate 75 Mg Capsule PO 11/07/24 09:01 75 mg Q12HR EMY Administration Sodium Chloride 1 syr 11/02/24 22:00 11/04/24 04:09 0.9% Sodium Chloride 10 Ml Disp.Syrin IVF Not Given Q8HR [facility] Plan Plan: 1. Acute rhabdo in setting of fall and influenza - Improving, cpk trending down. Monitor for fluid overload. 2. Influenza A - Tamiflu, isolation, conservative measures 3. Hyponatremia, acute - Resolved, fluids changed to LR 4. Acute transaminitis in setting of viral illness - Improved, US negative, cont fluids 5. Adrenal insufficiency on chronic steroids - Hold home steroids, will stress dose steroids with hydrocortisone. Will decrease dose to 50 mg q12 iv today. Follows with Dr. Oliver, endocrinology at [place]. ([phone]). 6. Hx of astrocytoma grade 2 s/p chemo/radiation in 2015 and obstructive hydrocephalus s/p shunt placement - Had recent routine MRI, follows with [facility]. States he's been doing well from this standpoint lately. Denies chronic deficits except vision changes. However sister feels his balance has been worse. PTOTST ordered. 7. Hypothyroidism - Cont home meds DVT Prophylaxis: Ambulation Review Statement Review Statement: I have personally discussed and reviewed the patient's visit/currently labs/imaging/decision making with Dr. Bland, my supervising attending. Greater that 50 minutes spent with patient, 50% of the time spent with this patient was devoted to counseling and coordination of care.
[2024-11-04] MEDS: LOVENOX SUBCUT SCH (13:24)
[2024-11-04] MEDS: SOLU-CORTEF 100 MG IVP SCH (20:39)
[2024-11-05 06:07] LABS: BASOPHILS % (AUTO) 0.2 % (0.0-3.0); EOSINOPHILS # (AUTO) 0.1 K/ul (0.0-0.7); HEMOGLOBIN 12.9 g/dl (14.0-18.0); IMMATURE GRANULOCYTE % (AUTO) 0.4 % (0.0-5.0); LYMPHOCYTES # (AUTO) 1.3 K/uL (0.60-3.4); LYMPHOCYTES % (AUTO) 24.9 (10.0-50.0); MEAN CORPUSCULAR HEMOGLOBIN 27.5 pg (27.0-31.0); MEAN CORPUSCULAR HGB CONC 33.1 (31.8-35.4); MEAN CORPUSCULAR VOLUME 83.2 fl (80.0-94.0); MONOCYTES # (AUTO) 0.3 K/uL (0.4-2.0); MONOCYTES % (AUTO) 4.8 (0-10); NEUTROPHILS # (AUTO) 3.6 K/ul (2.0-6.9); NEUTROPHILS % (AUTO) 68.7 % (42.2-75.2); PLATELET COUNT 190 10^3/uL (140-440); RDW COEFFICIENT OF VARIATION 13.7 % (11.6-14.8); RED BLOOD COUNT 4.69 10^6/ul (4.70-6.10); WHITE BLOOD COUNT 5.23 K/ul (4.2-10.2)
[2024-11-05 06:23] LABS: ALANINE AMINOTRANSFERASE 68.8 U/L (0-50); ALBUMIN 3.59 g/dL (3.5-5.0); ALKALINE PHOSPHATASE 32.4 U/L (38-126); ASPARTATE AMINO TRANSFERASE 196.8 U/L (17-59); BILIRUBIN,TOTAL 0.9 mg/dL (0.2-1.3); BLOOD UREA NITROGEN 16.4 mg/dL (9-20); CALCIUM 8.18 mg/dL (8.4-10.2); CARBON DIOXIDE 27.5 mmol/L (22-30.0); CHLORIDE 103.1 mmol/L (98-107); CREATININE 1.3 mg/dL (0.60-1.10); GLUCOSE 108.9 mg/dL (74-106); POTASSIUM 3.66 mmol/L (3.5-5.1); SODIUM 135.8 mmol/L (134.5-145); TOTAL PROTEIN 6.3 g/dL (6.3-8.2)
[2024-11-05 06:26] LABS: CREATINE KINASE 9217.8 U/L (55-170)
[2024-11-05 07:07] LABS: CREATINE KINASE MB 9.23 ng/ml (0.0-2.38)
[2024-11-05] MEDS: LACTATED RINGERS 1,000 ML IV SCH (09:40)
--- NOTE | 2024-11-05 11:20 | PCM.PROG ---
Date/Time Seen Date Seen by Provider: 11/05/24 Time Seen by Provider: 09:15 Provider Provider: SHARIFA ALLEN, [facility] Chief Complaint Chief Complaint: RHABDOMYOLYSIS, CLIFF, FLU A Subjective Subjective: Feeling much better today. No complaints or concerns at this time. No s/sx of fluid overload. Objective Appearance: Positive No Apparent Distress and Alert and Oriented x3 Chest/Lungs: Positive Symmetrical With Equal Breath Sounds, Clear to Ausculta tion Bilaterally and Good Air Movement all 4 Lung Justin Heart: Positive RRR and Pulses Normal GI/: Positive Soft, Nontender, Bowel Sounds Normal and No Distention Musculoskeletal: Positive Not Examined Neurological: Positive Sensation Intact, Motor intact, Alert and Oriented Vital Signs Vital Signs: Vital Signs: Last 24 Hours 11/04/24 13:00 11/04/24 14:00 11/04/24 15:48 Temperature 97.8 F Temperature Source Temporal Artery Scan Pulse Rate 83 Respiratory Rate 16 Blood Pressure 147/97 H 132/62 Blood Pressure Mean 113 85 Blood Pressure Location Left Arm Right Arm Blood Pressure Position Sitting O2 Sat by Pulse Oximetry 97 Oxygen Delivery Method Room Air Room Air Telemetry Type Bedside Monitor Telemetry Monitoring Continues Telemetry Heart Rate 96 EKG SD Interval 0.16 EKG QRS Interval 0.06 Telemetry Strip Reading NSR 11/04/24 17:49 11/04/24 19:00 11/04/24 20:00 Temperature 97.8 F Temperature Source Temporal Artery Scan Pulse Rate 90 Respiratory Rate 18 Blood Pressure 126/72 Blood Pressure Mean 90 Blood Pressure Location Right Arm Blood Pressure Position Sitting O2 Sat by Pulse Oximetry 97 Oxygen Delivery Method Room Air Room Air Telemetry Type Remote Telemetry Telemetry Monitoring Continues Telemetry Heart Rate 72 EKG SD Interval 0.12 EKG QRS Interval 0.08 Telemetry Strip Reading sinus rhythm 11/04/24 21:07 11/05/24 00:25 11/05/24 02:00 Temperature 97.8 F Temperature Source Temporal Artery Scan Pulse Rate 61 60 Respiratory Rate 19 17 Blood Pressure 126/93 H 132/64 Blood Pressure Mean 104 86 Blood Pressure Location Right Arm Right Arm Blood Pressure Position Supine Supine O2 Sat by Pulse Oximetry 96 97 Oxygen Delivery Method Room Air Room Air Telemetry Type Bedside Monitor Telemetry Monitoring Continues Telemetry Heart Rate 58 L EKG SD Interval 0.19 EKG QRS Interval 0.09 Telemetry Strip Reading sinus rhythm 11/05/24 05:30 11/05/24 07:00 11/05/24 10:00 Temperature 97.6 F 96.9 F L Temperature Source Temporal Artery Scan Temporal Artery Scan Pulse Rate 66 60 Respiratory Rate 16 16 Blood Pressure 129/94 H 118/83 Blood Pressure Mean 105 94 Blood Pressure Location Right Arm Right Arm Blood Pressure Position Supine Sitting O2 Sat by Pulse Oximetry 95 95 Oxygen Delivery Method Room Air Room Air Telemetry Type Remote Telemetry Telemetry Monitoring Continues Telemetry Heart Rate 49 L EKG SD Interval 0.15 EKG QRS Interval 0.11 H Telemetry Strip Reading sr w/ BBB Lab Results Lab Results: Lab Results: Last 24 Hours 11/05/24 05:55 WBC 5.23 RBC 4.69 L Hgb 12.9 L Hct 39.0 L MCV 83.2 MCH 27.5 MCHC 33.1 RDW Coeff of Brooke 13.7 Plt Count 190 Immature Gran % (Auto) 0.4 Neut % (Auto) 68.7 Lymph % (Auto) 24.9 [place] % (Auto) 4.8 Eos % (Auto) 1.0 Baso % (Auto) 0.2 Neut # (Auto) 3.6 Lymph # (Auto) 1.3 [place] # (Auto) 0.3 L Eos # (Auto) 0.1 Baso # (Auto) 0.0 Immature Gran # (Auto) 0.0 Sodium 135.8 Potassium 3.66 Chloride 103.1 Carbon Dioxide 27.5 Anion Gap 8.86 BUN 16.4 Creatinine 1.30 H Estimated GFR (MDRD) 60.00 BUN/Creatinine Ratio 12.61 Glucose 108.9 H Calcium 8.18 L Total Bilirubin 0.90 AST 196.8 H D ALT 68.8 H Alkaline Phosphatase 32.4 L Total Creatine Kinase 9217.8 H CK-MB (CK-2) 9.230 H* CK-MB (CK-2) % 0.1000 Total Protein 6.30 Albumin 3.59 Globulin 2.71 Albumin/Globulin Ratio 1.32 Additional Comments Additional Comments: I have independently reviewed and interpreted the labs/EKGs/imaging ordered during this hospital stay. I have reviewed outside records that are available in our EMR that pertain to medical stay including imaging/notes/labs from previous visits. Active Medications Active Medications: Medications Generic Name Dose Route Start Last Admin Trade Name Freq PRN Reason Stop Dose Admin Acetaminophen 650 mg 11/02/24 19:05 Acetaminophen 325 Mg Tablet PO Q4H PRN Mild Pain Bismuth Subsalicylate 524 mg 11/04/24 09:39 11/04/24 10:00 Bismuth Subsalicylate 262 Mg Tab.Chew PO 524 mg Q6H PRN Administration Diarrhea Diphenhydramine HCl 25 mg 11/03/24 19:36 11/04/24 20:40 Diphenhydramine Hcl 25 Mg Capsule PO 25 mg BEDTIME PRN Administration insomnia Enoxaparin Sodium 40 mg 11/04/24 13:00 11/05/24 09:08 Enoxaparin Sodium 40 Mg/0.4 Ml Syr SUBCUT 40 mg DAILY EMY Administration Escitalopram Oxalate 5 mg 11/03/24 09:00 11/05/24 09:07 Escitalopram Oxalate 10 Mg Tablet PO 5 mg DAILY EMY Administration Fluticasone Propionate 1 spray 11/02/24 21:00 11/05/24 09:08 Fluticasone Propionate 16 Gm Nasal [place] CHANNING 1 spray BID EMY Administration Hydralazine HCl 10 mg 11/03/24 19:37 11/04/24 04:09 Hydralazine Hcl 20 Mg/Ml Sdv IVP 10 mg Q6H PRN Administration Hypertension Hydrocortisone Sodium Succinate 50 mg 11/04/24 21:00 11/05/24 09:07 Hydrocortisone Sod Succ/Pf 100 Mg/2 Ml Vial IVP 50 mg Q12HR EMY Administration Lactated Ringer's 1,000 mls @ 125 mls/hr 11/05/24 08:20 11/05/24 09:40 Lactated Ringers IV 125 mls/hr .Q8H EMY Administration Levetiracetam 1,000 mg 11/02/24 21:00 11/05/24 09:07 Levetiracetam 500 Mg Tablet PO 1,000 mg BID EMY Administration Levothyroxine Sodium 150 mcg 11/03/24 06:00 11/05/24 05:24 Levothyroxine Sodium 100 Mcg Tablet PO 150 mcg QDAC2 EMY Administration Loperamide HCl 2 mg 11/03/24 09:20 Loperamide Hcl 2 Mg Tablet PO Q6H PRN Diarrhea Ondansetron HCl 4 mg 11/02/24 19:05 Ondansetron Hcl/Pf 4 Mg/2 Ml Sdv IVP Q6H PRN Nausea / Vomiting Oseltamivir Phosphate 75 mg 11/03/24 09:00 11/05/24 09:07 Oseltamivir Phosphate 75 Mg Capsule PO 11/07/24 09:01 75 mg Q12HR EMY Administration Sodium Chloride 1 syr 11/05/24 05:18 0.9% Sodium Chloride 10 Ml Disp.Syrin IVF Q8HR PRN FLUSHING Plan Plan: 1. Acute rhabdo in setting of fall and influenza - Improving, cpk trending down. Monitor for fluid overload. 2. Influenza A - Tamiflu, isolation, conservative measures 3. Hyponatremia, acute - Resolved, fluids changed to LR 4. Acute transaminitis in setting of viral illness - Improved, US negative, cont fluids 5. Adrenal insufficiency on chronic steroids - Hold home steroids, will stress dose steroids with hydrocortisone. Will decrease dose to 50 mg q12 iv today - will continue to taper, Follows with Dr. Oliver, endocrinology at [place]. ([phone]). 6. 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 States he's been doing well from this standpoint lately. Denies chronic deficits except vision changes. However sister feels his balance has been worse. PTOTST ordered. 7. Hypothyroidism - Cont home meds DVT Prophylaxis: Ambulation Review Statement Review Statement: I have personally discussed and reviewed the patient's visit/currently labs/imaging/decision making with Dr. Bland, my supervising attending. Greater that 50 minutes spent with patient, 50% of the time spent with this patient was devoted to counseling and coordination of care.
[2024-11-06 05:51] LABS: BASOPHILS % (AUTO) 0.2 % (0.0-3.0); HEMATOCRIT 40.5 % (42.0-52.0); HEMOGLOBIN 13.5 g/dl (14.0-18.0); IMMATURE GRANULOCYTE % (AUTO) 0.6 % (0.0-5.0); LYMPHOCYTES # (AUTO) 1.7 K/uL (0.60-3.4); LYMPHOCYTES % (AUTO) 33.2 (10.0-50.0); MEAN CORPUSCULAR HEMOGLOBIN 28.2 pg (27.0-31.0); MEAN CORPUSCULAR HGB CONC 33.3 (31.8-35.4); MEAN CORPUSCULAR VOLUME 84.6 fl (80.0-94.0); MONOCYTES # (AUTO) 0.3 K/uL (0.4-2.0); MONOCYTES % (AUTO) 4.9 (0-10); NEUTROPHILS # (AUTO) 3.1 K/ul (2.0-6.9); NEUTROPHILS % (AUTO) 61.1 % (42.2-75.2); PLATELET COUNT 203 10^3/uL (140-440); RDW COEFFICIENT OF VARIATION 13.2 % (11.6-14.8); RED BLOOD COUNT 4.79 10^6/ul (4.70-6.10); WHITE BLOOD COUNT 5.12 K/ul (4.2-10.2)
[2024-11-06 06:00] LABS: ALANINE AMINOTRANSFERASE 67.2 U/L (0-50); ALBUMIN 3.84 g/dL (3.5-5.0); ALKALINE PHOSPHATASE 33.2 U/L (38-126); ASPARTATE AMINO TRANSFERASE 132.5 U/L (17-59); BILIRUBIN,TOTAL 0.92 mg/dL (0.2-1.3); CALCIUM 8.3 mg/dL (8.4-10.2); CHLORIDE 101.4 mmol/L (98-107); CREATININE 1.33 mg/dL (0.60-1.10); GLUCOSE 101.3 mg/dL (74-106); POTASSIUM 3.8 mmol/L (3.5-5.1); TOTAL PROTEIN 6.62 g/dL (6.3-8.2)
[2024-11-06 06:01] LABS: CREATINE KINASE 4028.8 U/L (55-170)
[2024-11-06 06:41] LABS: CREATINE KINASE MB 5.57 ng/ml (0.0-2.38)
--- NOTE | 2024-11-06 10:05 | PCM.PROG ---
Date/Time Seen Date Seen by Provider: 11/06/24 Time Seen by Provider: 09:15 Provider Provider[facility] Chief Complaint Chief Complaint: RHABDOMYOLYSIS, CLIFF, FLU A Subjective Subjective: Feeling better. CK continuing to decrease. Objective Appearance: Positive No Apparent Distress and Alert and Oriented x3 Chest/Lungs: Positive Symmetrical With Equal Breath Sounds, Clear to Auscultation Bilaterally and Good Air Movement all 4 Lung Justin Heart: Positive RRR and Pulses Normal GI/: Positive Soft, Nontender, Bowel Sounds Normal and No Distention Musculoskeletal: Positive Not Examined Neurological: Positive Sensation Intact, Motor intact, Alert and Oriented Vital Signs Vital Signs: Vital Signs: Last 24 Hours 11/05/24 13:00 11/05/24 13:52 11/05/24 17:58 Temperature 97.0 F L 96.7 F L Temperature Source Temporal Artery Scan Temporal Artery Scan Pulse Rate 75 76 Respiratory Rate 20 18 Blood Pressure 119/82 132/47 L Blood Pressure Mean 94 75 Blood Pressure Location Left Arm Left Arm Blood Pressure Position Sitting Supine O2 Sat by Pulse Oximetry 96 Oxygen Delivery Method Room Air Room Air Telemetry Type Remote Telemetry Telemetry Monitoring Continues Telemetry Heart Rate 63 EKG ND Interval 0.13 EKG QRS Interval 0.12 H Telemetry Strip Reading sr w/ bbb 11/05/24 19:00 11/05/24 20:00 11/05/24 21:23 Temperature 97.3 F L Temperature Source Temporal Artery Scan Pulse Rate 54 L Respiratory Rate 20 Blood Pressure 145/98 H Blood Pressure Mean 113 Blood Pressure Location Right Arm Blood Pressure Position Supine O2 Sat by Pulse Oximetry 91 L Oxygen Delivery Method Room Air Room Air Telemetry Type Remote Telemetry Telemetry Monitoring Continues Telemetry Heart Rate 54 L EKG ND Interval 0.13 EKG QRS Interval 0.06 Telemetry Strip Reading SB W/ PACS 11/06/24 01:00 11/06/24 06:00 11/06/24 08:00 Temperature 97.3 F L Temperature Source Temporal Artery Scan Pulse Rate 47 L Respiratory Rate 16 Blood Pressure 159/102 H Blood Pressure Mean 121 Blood Pressure Location Right Arm Blood Pressure Position Supine O2 Sat by Pulse Oximetry 98 Oxygen Delivery Method Room Air Room Air Telemetry Type Bedside Monitor Telemetry Monitoring Continues Telemetry Heart Rate 53 L EKG ND Interval 0.12 EKG QRS Interval 0.10 Telemetry Strip Reading SR W/ PACS Lab Results Lab Results: Lab Results: Last 24 Hours 11/06/24 05:29 WBC 5.12 RBC 4.79 Hgb 13.5 L Hct 40.5 L MCV 84.6 MCH 28.2 MCHC 33.3 RDW Coeff of Brooke 13.2 Plt Count 203 Immature Gran % (Auto) 0.6 Neut % (Auto) 61.1 Lymph % (Auto) 33.2 [place] % (Auto) 4.9 Eos % (Auto) 0.0 Baso % (Auto) 0.2 Neut # (Auto) 3.1 Lymph # (Auto) 1.7 [place] # (Auto) 0.3 L Eos # (Auto) 0.0 Baso # (Auto) 0.0 Immature Gran # (Auto) 0.0 Sodium 137.0 Potassium 3.80 Chloride 101.4 Carbon Dioxide 32.0 H Anion Gap 7.40 BUN 16.0 Creatinine 1.33 H Estimated GFR (MDRD) 58.00 BUN/Creatinine Ratio 12.03 Glucose 101.3 Calcium 8.30 L Total Bilirubin 0.92 AST 132.5 H D ALT 67.2 H Alkaline Phosphatase 33.2 L Total Creatine Kinase 4028.8 H CK-MB (CK-2) 5.570 H* CK-MB (CK-2) % 0.1300 Total Protein 6.62 Albumin 3.84 Globulin 2.78 Albumin/Globulin Ratio 1.38 Additional Comments Additional Comments: I have independently reviewed and interpreted the labs/EKGs/imaging ordered during this hospital stay. I have reviewed outside records that are available in our EMR that pertain to medical stay including imaging/notes/labs from previous visits. Active Medications Active Medications: Medications Generic Name Dose Route Start Last Admin Trade Name Carlos Enriqueq PRN Reason Stop Dose Admin Acetaminophen 650 mg 11/02/24 19:05 Acetaminophen 325 Mg Tablet PO Q4H PRN Mild Pain Bismuth Subsalicylate 524 mg 11/04/24 09:39 11/04/24 10:00 Bismuth Subsalicylate 262 Mg Tab.Chew PO 524 mg Q6H PRN Administration Diarrhea Diphenhydramine HCl 25 mg 11/03/24 19:36 11/05/24 20:45 Diphenhydramine Hcl 25 Mg Capsule PO 25 mg BEDTIME PRN Administration insomnia Enoxaparin Sodium 40 mg 11/04/24 13:00 11/06/24 09:04 Enoxaparin Sodium 40 Mg/0.4 Ml Syr SUBCUT 40 mg DAILY EMY Administration Escitalopram Oxalate 5 mg 11/03/24 09:00 11/06/24 09:04 Escitalopram Oxalate 10 Mg Tablet PO 5 mg DAILY EMY Administration Fluticasone Propionate 1 spray 11/02/24 21:00 11/06/24 09:03 Fluticasone Propionate 16 Gm Nasal [place] CHANNING 1 spray BID EMY Administration Hydralazine HCl 10 mg 11/03/24 19:37 11/04/24 04:09 Hydralazine Hcl 20 Mg/Ml Sdv IVP 10 mg Q6H PRN Administration Hypertension Hydrocortisone Sodium Succinate 50 mg 11/04/24 21:00 11/06/24 09:41 Hydrocortisone Sod Succ/Pf 100 Mg/2 Ml Vial IVP 50 mg Q12HR EMY Administration Lactated Ringer's 1,000 mls @ 125 mls/hr 11/05/24 08:20 11/06/24 09:42 Lactated Ringers IV 125 mls/hr .Q8H EMY Administration Levetiracetam 1,000 mg 11/02/24 21:00 11/06/24 09:03 Levetiracetam 500 Mg Tablet PO 1,000 mg BID EMY Administration Levothyroxine Sodium 150 mcg 11/03/24 06:00 11/06/24 05:27 Levothyroxine Sodium 100 Mcg Tablet PO 150 mcg QDAC2 EMY Administration Loperamide HCl 2 mg 11/03/24 09:20 Loperamide Hcl 2 Mg Tablet PO Q6H PRN Diarrhea Ondansetron HCl 4 mg 11/02/24 19:05 Ondansetron Hcl/Pf 4 Mg/2 Ml Sdv IVP Q6H PRN Nausea / Vomiting Oseltamivir Phosphate 75 mg 11/03/24 09:00 11/06/24 09:04 Oseltamivir Phosphate 75 Mg Capsule PO 11/07/24 09:01 75 mg Q12HR EMY Administration Sodium Chloride 1 syr 11/05/24 05:18 0.9% Sodium Chloride 10 Ml Disp.Syrin IVF Q8HR PRN FLUSHING Plan Plan: 1. Acute rhabdo in setting of fall and influenza - Improving, cpk trending down. Monitor for fluid overload. 2. Influenza A - Tamiflu, isolation, conservative measures 3. Hyponatremia, acute - Resolved, fluids changed to LR 4. Acute transaminitis in setting of viral illness - Improved, US negative, cont fluids 5. Adrenal insufficiency on chronic steroids - Hold home steroids, will stress dose steroids with hydrocortisone. Will decrease dose to 25 daily - continue to taper, Follows with Dr. Oliver, endocrinology at [place]. ([phone]). 6. Hx of astrocytoma grade 2 s/p chemo/radiation in 2015 and obstructive hydrocephalus s/p shunt placement - Had recent routine MRI, follows with [place]. States he's been doing well from this standpoint lately. Denies ch ronic deficits except vision changes. However sister feels his balance has been worse. PTOTST ordered. 7. Hypothyroidism - Cont home meds DVT Prophylaxis: Ambulation Review Statement Review Statement: I have personally discussed and reviewed the patient's visit/currently labs/imaging/decision making with Dr. Bland, my supervising attending. Greater that 50 minutes spent with patient, 50% of the time spent with this patient was devoted to counseling and coordination of care.
[2024-11-07 05:44] LABS: ALANINE AMINOTRANSFERASE 55.4 U/L (0-50); ALBUMIN 3.38 g/dL (3.5-5.0); ASPARTATE AMINO TRANSFERASE 69.5 U/L (17-59); BILIRUBIN,TOTAL 0.76 mg/dL (0.2-1.3); BLOOD UREA NITROGEN 15.3 mg/dL (9-20); CALCIUM 8.05 mg/dL (8.4-10.2); CARBON DIOXIDE 31.5 mmol/L (22-30.0); CHLORIDE 101.3 mmol/L (98-107); CREATINE KINASE 1031.7 U/L (55-170); CREATININE 1.55 mg/dL (0.60-1.10); GLUCOSE 87.8 mg/dL (74-106); POTASSIUM 3.23 mmol/L (3.5-5.1); SODIUM 136.7 mmol/L (134.5-145); TOTAL PROTEIN 5.97 g/dL (6.3-8.2)
[2024-11-07 05:45] LABS: ALKALINE PHOSPHATASE 33.7 U/L (38-126)
[2024-11-07 06:04] LABS: HEMATOCRIT 37.7 % (42.0-52.0); HEMOGLOBIN 12.7 g/dl (14.0-18.0); MEAN CORPUSCULAR HEMOGLOBIN 27.9 pg (27.0-31.0); MEAN CORPUSCULAR HGB CONC 33.7 (31.8-35.4); MEAN CORPUSCULAR VOLUME 82.9 fl (80.0-94.0); PLATELET COUNT 187 10^3/uL (140-440); RED BLOOD COUNT 4.55 10^6/ul (4.70-6.10); WHITE BLOOD COUNT 6.53 K/ul (4.2-10.2)
[2024-11-07 06:08] LABS: ANISOCYTOSIS NOT PRESENT (NOT PRESENT)
[2024-11-07] MEDS: SOLU-CORTEF 100 MG IVP SCH (08:37)
[2024-11-07] MEDS: K-DUR PO ONE (08:38)
--- NOTE | 2024-11-07 09:47 | DCSUM ---
Admission Date Admission Date: 11/02/24 Discharge Date Discharge Date: 11/08/24 Admission Diagnosis Admission Diagnosis: 1. Acute rhabdo in setting of fall and influenza 2. Influenza A 3. Hyponatremia, acute 4. Acute transaminitis in setting of viral illness Discharge Diagnosis Discharge Diagnosis: 1. Acute rhabdo in setting of fall and influenza - Improving 2. Influenza A - Improved 3. Hyponatremia, acute - Resolved 4. Acute transaminitis in setting of viral illness - Improved, US negative 5. Adrenal insufficiency on chronic steroids - received stress dose steroids with hydrocortisone. tapered to home dosing, Follows with Dr. Oliver, endocrinology at [place]. ([phone]). 6. Hx of astrocytoma grade 2 s/p chemo/radiation in 2015 and obstructive hydro cephalus s/p shunt placement - Chronic, stable 7. Hypothyroidism - Chronic, stable Hospital Provider Hospital Provider: [facility] Primary [facility] Physician Primary Care Physician: LEXI OSBORNE Summary of History and Physical Summary of History and Physical: Patient is a 44 year old male with pmhx of astrocytoma grade 2 s/p chemo/radiation in 2014 (pt and father state it was non cancerous), obstructive hydrocephalus s/p shunt placement, hx of cva, adrenal insufficiency on chronic steroids, seizures, hypothyroidism, who presents for fall, fatigue, and diarrhea. Dad states the diarrhea has been on going for some time. However patient had a fall at home and was down for an unknown amount of time. Pt has difficulty recalling specifics of the events but remembers trying to crawl to the door to let family in. In the ER he was positive for influenza A. Noted to have a fever and tachycardic. His BP was normal. [place] was [place] [id number]. Liver enzymes were mildly elevated. RUQ ultrasound was negative fro acute findings. CXR negative as well. Patient was given fluids and tamiflu and admitted to med surg for influenza and rhabdo. Today patient is feeling much better. Father states he seems much better as well. He has urinated well with fluid resuscitation. Patient states he recently had his routine MRI brain done at [facility] but follows at [place]. He also sees a Dr. Escalante for endocrinology/adrenal insufficiency. Hospital Course Subjective: During stay, CPK trended down well with fluids. >20,000 initially and now in 500s today. Patient requesting discharge at this time. Discussed appropriate fluid intake with electrolyte beverages as well. Gave steroid taper during stay due to stress of flu and rhabdo in setting of adrenal insufficiency. Tapered to home dosing. Also completed course of tamiflu. Hyponatremic initially, but resolved with fluids. Transaminitis noted on admission. US completed and negative. Trended down appropriately. Likely due to illness. No changes to home medications. Appearance: Pleasant, No Apparent Distress and Alert HEENT: MMM, Supple and No JVD CVS: No Murmur and No Rubs Abdomen: Soft, Non-Tender and No Distention Respiratory: No Dyspnea Extremities: No Edema Vital Signs: Most Recent Vital Signs Temperature 98.9 F 11/07/24 05:22 Temperature Source Temporal Artery Scan 11/07/24 05:22 Temperature Source Tympanic 11/02/24 12:59 Pulse Rate 62 11/07/24 05:22 Respiratory Rate 16 11/07/24 05:22 Blood Pressure 148/107 H 11/07/24 05:22 Blood Pressure Mean 120 11/07/24 05:22 Blood Pressure Left Arm 146/99 11/02/24 20:28 Blood Pressure Location Right Arm 11/07/24 05:22 Blood Pressure Position Supine 11/07/24 01:31 O2 Sat by Pulse Oximetry 96 11/07/24 05:22 Oxygen Delivery Method Room Air 11/07/24 05:22 Height 6 ft 11/04/24 09:43 Weight 120.8 kg 11/04/24 09:43 Telemetry Type Bedside Monitor 11/07/24 01:00 Telemetry Monitoring Continues 11/07/24 01:00 Telemetry Heart Rate 53 L 11/07/24 01:00 Telemetry SPO2 96 11/04/24 01:00 EKG FL Interval 0.14 11/07/24 01:00 EKG QRS Interval 0.11 H 11/07/24 01:00 Telemetry Strip Reading SB W/ PACS AND BBB 11/07/24 01:00 Imaging: EXAM: FRONTAL CHEST RADIOGRAPH(S). 1 VIEW. History: Chest pain. Shortness of breath. Comparison: 09/08/2021 Findings: Heart size normal. No pleural effusion or pneumothorax. No focal airspace opacification.Ventriculoperitoneal shunt. Impression: No acute findings Lab Results Last 24 Hours: 11/07/24 04:46 WBC 6.53 RBC 4.55 L Hgb 12.7 L Hct 37.7 L MCV 82.9 MCH 27.9 MCHC 33.7 RDW Coeff of Brooke 13.0 Plt Count 187 Neutrophils % (Manual) 42.0 L Band Neutrophils % 3.0 Lymphocytes % (Manual) 45.0 Monocytes % (Manual) 2.0 Reactive Lymphocytes 8.0 H Anisocytosis Not present Sodium 136.7 Potassium 3.23 L Chloride 101.3 Carbon Dioxide 31.5 H Anion Gap 7.13 BUN 15.3 Creatinine 1.55 H Estimated GFR (MDRD) 49.00 BUN/Creatinine Ratio 9.87 Glucose 87.8 Calcium 8.05 L Total Bilirubin 0.76 AST 69.5 H D ALT 55.4 H Alkaline Phosphatase 33.7 L Total Creatine Kinase 1031.7 H CK-MB (CK-2) 3.000 H CK-MB (CK-2) % 0.2900 Total Protein 5.97 L Albumin 3.38 L Globulin 2.59 Albumin/Globulin Ratio 1.30 Discharge Instructions Discharge Planning: Discharge Planning > 40 minutes If patient is discharged with left ventricular systolic dysfunction: NA Discharged with a beta felecia? [] If no, why not? [] Discharged with an renetta/arb? [] If no, why not? [] Diagnosis: Rhabdomyolysis, Influenza A Diet: Regular, be sure to continue to drink plenty of fluids at least 2-3L daily, with electrolyte beverages as well Activity: as tolerated Medications: No prescriptions, no changes to home regimen Follow-up with PCP next week. Discharge Medications: None Discharge Plan Discharge Discharge Orders: Discharge Patient (ONCE); Ordered 11/08/24 Ordered By: MJ NI Activity Restrictions/Additional Instructions: Diagnosis: Rhabdomyolysis, Influenza A Diet: Regular, be sure to continue to drink plenty of fluids at least 2-3L daily, with electrolyte beverages as well Activity: as tolerated Medications: No prescriptions, no changes to home regimen Follow-up with PCP next week. Instructions: Rhabdomyolysis (GEN), Influenza (GEN) Patient Disposition: HOME WITH FAMILY CARE Prescriptions: Continued loperamide [Imodium A-D] 2 mg capsule 2 mg PO Q6H MDD 3 PRN (Reason: loose stool) Qty: 12 0RF Rx Instructions: Take the Imodium only if persistent diarrhea hydrocortisone 5 mg tablet 5 mg PO 1500 Patient Comments: TAKE 2 TABLET BY MOUTH EVERY MORNING AND 1 TABLET EVERY EVENING hydrocortisone 5 mg tablet 10 mg PO DAILY Patient Comments: TAKE 2 TABLET BY MOUTH EVERY MORNING AND 1 TABLET EVERY EVENING levothyroxine 150 mcg tablet 150 mcg PO DAILY Patient Comments: TAKE 1 TABLET BY MOUTH EVERY DAY testosterone 100 mg/mL Suspension 100 mg IM WEEKLY fluticasone propionate 50 mcg/actuation [place],Suspension 1 spray INTRANASAL BID Rx Instructions: administer into each nostril escitalopram oxalate [Lexapro] 5 mg Tablet 5 mg PO DAILY levetiracetam [Keppra] 1,000 mg Tablet 1,000 mg PO BID Did you review [place] [employer] for ALL controlled substances?: No Discussed opioids are addictive and Narcan is available by prescription or from pharmacy.: No Referrals: LEXI OSBORNE, [facility] [Primary Care Provider] - 11/15/24 11:00 am
[2024-11-07 13:14] LABS: CREATINE KINASE 930.5 U/L (55-170)
[2024-11-07 13:30] LABS: CREATINE KINASE MB 3.04 ng/ml (0.0-2.38)
--- NOTE | 2024-11-07 13:37 | PCM.PROG ---
Date/Time Seen Date Seen by Provider: 11/07/24 Time Seen by Provider: 09:15 Provider [facility] Chief Complaint Chief Complaint: RHABDOMYOLYSIS, CLIFF, FLU A Subjective Subjective: No complaints or concerns at this time. Anxious to get back home. Objective Appearance: Positive No Apparent Distress and Alert and Oriented x3 Chest/Lungs: Positive Symmetrical With Equal Breath Sounds, Clear to Auscultation Bilaterally and Good Air Movement all 4 Lung Justin Heart: Positive RRR and Pulses Normal GI/: Positive Soft, Nontender, Bowel Sounds Normal and No Distention Musculoskeletal: Positive Normal Gait and Station Neurological: Positive Sensation Intact, Motor intact, Alert and Oriented Vital Signs Vital Signs: Vital Signs: Last 24 Hours 11/06/24 14:00 11/06/24 18:00 11/06/24 19:00 Temperature 97.2 F L 97.8 F Temperature Source Temporal Artery Scan Temporal Artery Scan Pulse Rate 64 61 Respiratory Rate 14 16 Blood Pressure 141/81 H 129/85 Blood Pressure Mean 101 99 Blood Pressure Location Right Arm Right Arm Blood Pressure Position Supine Supine O2 Sat by Pulse Oximetry 95 97 Oxygen Delivery Method Room Air Room Air Telemetry Type Bedside Monitor Telemetry Monitoring Continues Telemetry Heart Rate 62 EKG CO Interval 0.14 EKG QRS Interval 0.06 Telemetry Strip Reading NSR 11/06/24 20:00 11/06/24 21:41 11/07/24 01:00 Temperature 96.8 F L Temperature Source Tympanic Pulse Rate 60 Respiratory Rate Blood Pressure 147/96 H Blood Pressure Mean 113 Blood Pressure Location Right Arm Blood Pressure Position Supine O2 Sat by Pulse Oximetry 96 Oxygen Delivery Method Room Air Room Air Telemetry Type Bedside Monitor Telemetry Monitoring Continues Telemetry Heart Rate 53 L EKG CO Interval 0.14 EKG QRS Interval 0.11 H Telemetry Strip Reading SB W/ PACS AND BBB 11/07/24 01:31 11/07/24 05:22 11/07/24 08:00 Temperature 97.1 F L 98.9 F Temperature Source Tympanic Temporal Artery Scan Pulse Rate 62 Respiratory Rate 16 Blood Pressure 149/92 H 148/107 H Blood Pressure Mean 111 120 Blood Pressure Location Right Arm Right Arm Blood Pressure Position Supine O2 Sat by Pulse Oximetry 96 Oxygen Delivery Method Room Air Room Air Room Air Telemetry Type Telemetry Monitoring Telemetry Heart Rate EKG CO Interval EKG QRS Interval Telemetry Strip Reading 11/07/24 10:00 Temperature 98.7 F Temperature Source Temporal Artery Scan Pulse Rate 65 Respiratory Rate 18 Blood Pressure 147/90 H Blood Pressure Mean 109 Blood Pressure Location Right Arm Blood Pressure Position Sitting O2 Sat by Pulse Oximetry 95 Oxygen Delivery Method Room Air Telemetry Type Telemetry Monitoring Telemetry Heart Rate EKG CO Interval EKG QRS Interval Telemetry Strip Reading Lab Results Lab Results: Lab Results: Last 24 Hours 11/07/24 11/07/24 11:59 04:46 WBC 6.53 RBC 4.55 L Hgb 12.7 L Hct 37.7 L MCV 82.9 MCH 27.9 MCHC 33.7 RDW Coeff of Brooke 13.0 Plt Count 187 Neutrophils % (Manual) 42.0 L Band Neutrophils % 3.0 Lymphocytes % (Manual) 45.0 Monocytes % (Manual) 2.0 Reactive Lymphocytes 8.0 H Anisocytosis Not present Sodium 136.7 Potassium 3.23 L Chloride 101.3 Carbon Dioxide 31.5 H Anion Gap 7.13 BUN 15.3 Creatinine 1.55 H Estimated GFR (MDRD) 49.00 BUN/Creatinine Ratio 9.87 Glucose 87.8 Calcium 8.05 L Total Bilirubin 0.76 AST 69.5 H D ALT 55.4 H Alkaline Phosphatase 33.7 L Total Creatine Kinase 930.5 H 1031.7 H CK-MB (CK-2) 3.040 H 3.000 H CK-MB (CK-2) % 0.3200 0.2900 Total Protein 5.97 L Albumin 3.38 L Globulin 2.59 Albumin/Globulin Ratio 1.30 Additional Comments Additional Comments: I have independently reviewed and interpreted the labs/EKGs/imaging ordered during this hospital stay. I have reviewed outside records that are available in our EMR that pertain to medical stay including imaging/notes/labs from previous visits. Active Medications Active Medications: Medications Generic Name Dose Route Start Last Admin Trade Name Freq PRN Reason Stop Dose Admin Acetaminophen 650 mg 11/02/24 19:05 Acetaminophen 325 Mg Tablet PO Q4H PRN Mild Pain Bismuth Subsalicylate 524 mg 11/04/24 09:39 11/04/24 10:00 Bismuth Subsalicylate 262 Mg Tab.Chew PO 524 mg Q6H PRN Administration Diarrhea Diphenhydramine HCl 25 mg 11/03/24 19:36 11/06/24 20:30 Diphenhydramine Hcl 25 Mg Capsule PO 25 mg BEDTIME PRN Administration insomnia Enoxaparin Sodium 40 mg 11/04/24 13:00 11/07/24 08:37 Enoxaparin Sodium 40 Mg/0.4 Ml Syr SUBCUT 40 mg DAILY EMY Administration Escitalopram Oxalate 5 mg 11/03/24 09:00 11/07/24 08:38 Escitalopram Oxalate 10 Mg Tablet PO 5 mg DAILY EMY Administration Fluticasone Propionate 1 spray 11/02/24 21:00 11/07/24 08:38 Fluticasone Propionate 16 Gm Nasal Anselmo CHANNING 1 spray BID EMY Administration Hydralazine HCl 10 mg 11/03/24 19:37 11/04/24 04:09 Hydralazine Hcl 20 Mg/Ml Sdv IVP 10 mg Q6H PRN Administration Hypertension Hydrocortisone Sodium Succinate 25 mg 11/07/24 09:00 11/07/24 08:37 Hydrocortisone Sod Succ/Pf 100 Mg/2 Ml Vial IVP 25 mg DAILY EMY Administration Lactated Ringer's 1,000 mls @ 125 mls/hr 11/05/24 08:20 11/07/24 09:51 Lactated Ringers IV 125 mls/hr .Q8H EMY Administration Levetiracetam 1,000 mg 11/02/24 21:00 11/07/24 08:38 Levetiracetam 500 Mg Tablet PO 1,000 mg BID EMY Administration Levothyroxine Sodium 150 mcg 11/03/24 06:00 11/07/24 05:23 Levothyroxine Sodium 100 Mcg Tablet PO 150 mcg QDAC2 EMY Administration Loperamide HCl 2 mg 11/03/24 09:20 Loperamide Hcl 2 Mg Tablet PO Q6H PRN Diarrhea Ondansetron HCl 4 mg 11/02/24 19:05 Ondansetron Hcl/Pf 4 Mg/2 Ml Sdv IVP Q6H PRN Nausea / Vomiting Sodium Chloride 1 syr 11/05/24 05:18 0.9% Sodium Chloride 10 Ml Disp.Syrin IVF Q8HR PRN FLUSHING Plan Plan: 1. Acute rhabdo in setting of fall and influenza - Improving, cpk trending down. Monitor for fluid overload. 2. Influenza A - Tamiflu, isolation, conservative measures 3. Hyponatremia, acute - Resolved, fluids changed to LR 4. Acute transaminitis in setting of viral illness - Improved, US negative, cont fluids 5. Adrenal insufficiency on chronic steroids - received stress dose steroids with hydrocortisone. tapered to home dosing starting tomorrow. Follows with Dr. Oliver, endocrinology at [place]. ([phone]). 6. 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 States he's been doing well from this standpoint lately. Denies chronic deficits except vision changes. However sister feels his balance has been worse. PTOTST ordered. 7. Hypothyroidism - Cont home meds DVT Prophylaxis: Ambulation Dispo: CK trending down perfectly, awaiting further drop for safe discharge home. Anticipate d/c tomorrow based on trend. Review Statement Review Statement: I have personally discussed and reviewed the patient's visit/currently labs/imaging/decision making with Dr. Bland, my supervising attending. Greater that 50 minutes spent with patient, 50% of the time spent with this patient was devoted to counseling and coordination of care.
[2024-11-08 05:45] LABS: HEMATOCRIT 43.3 % (42.0-52.0); HEMOGLOBIN 14.4 g/dl (14.0-18.0); MEAN CORPUSCULAR HEMOGLOBIN 27.3 pg (27.0-31.0); MEAN CORPUSCULAR HGB CONC 33.3 (31.8-35.4); PLATELET COUNT 205 10^3/uL (140-440); RDW COEFFICIENT OF VARIATION 12.8 % (11.6-14.8); RED BLOOD COUNT 5.28 10^6/ul (4.70-6.10); WHITE BLOOD COUNT 8.11 K/ul (4.2-10.2)
[2024-11-08 05:58] LABS: ALANINE AMINOTRANSFERASE 58.6 U/L (0-50); ALBUMIN 3.95 g/dL (3.5-5.0); ALKALINE PHOSPHATASE 35.3 U/L (38-126); ASPARTATE AMINO TRANSFERASE 64.4 U/L (17-59); BILIRUBIN,TOTAL 1.34 mg/dL (0.2-1.3); BLOOD UREA NITROGEN 13.7 mg/dL (9-20); CALCIUM 8.55 mg/dL (8.4-10.2); CARBON DIOXIDE 32.3 mmol/L (22-30.0); CHLORIDE 96.1 mmol/L (98-107); CREATINE KINASE 547.1 U/L (55-170); CREATININE 1.5 mg/dL (0.60-1.10); GLUCOSE 87.2 mg/dL (74-106); POTASSIUM 3.18 mmol/L (3.5-5.1); TOTAL PROTEIN 6.83 g/dL (6.3-8.2)
[2024-11-08 06:13] LABS: CREATINE KINASE MB 2.08 ng/ml (0.0-2.38)
[2024-11-08 06:19] LABS: ANISOCYTOSIS NOT PRESENT (NOT PRESENT)
[2024-11-08] MEDS: K-DUR PO ONE (09:56)
[2024-11-08 11:34] VITALS: BP 132/98; PULSE 64; RESP 19; TEMP 97.2
== END 2024-11-08 12:50 | disposition home or self-care (01) | DRG 866 ==
LOC: ED 12:34 → SCU 18:14
PROVIDERS: ADMIT Hospitalist; ATTEND Nurse Practitioner Family